=== PATIENT | male | born 1945 | race Caucasian/White ===

== ENCOUNTER 2023-08-11 20:40 | Outpatient (CLI) | payer MEDICARE, SELFPAY | END 2023-08-11 20:41 | disposition home or self-care (01) | PROVIDERS: Visit Provider Registered Nurse | DX: G47.10 Hypersomnia, unspecified (principal); G47.61 Periodic limb movement disorder; I49.9 Cardiac arrhythmia, unspecified | CPT/HCPCS: 95810 ==